=== PATIENT | female | born 1950 | race Caucasian/White ===

== ENCOUNTER → 2017-10-25 | Outpatient (CLI) | payer MEDICARE, OTHER ==
[~2017-10-25] MED LIST: NAPR-243 PO; PROGESTERONE IM; VIVELLE
--- NOTE | 2017-10-25 15:32 | Diagnostic Imaging Report ---
EXAMINATION: Left ribs at 02:01 p.m. INDICATION: Rib pain. FINDINGS: Three views were obtained. There are no prior studies available for comparison. There is a slightly displaced fracture of the anterolateral aspect of the left ninth rib. In addition, there is a displaced fracture of the anterior aspect of the left seventh rib. The fracture fragments are displaced by half the width of the rib shaft. I suspect that there is also a nondisplaced fracture of the left eighth rib in this same area. There is no sign of an injury to the underlying left lung specifically. There is no pneumothorax. IMPRESSION: 1. There is a displaced fracture of the left seventh rib, a nondisplaced fracture of the left eighth rib, and a slightly displaced fracture of the left ninth rib. There is no acute bony abnormality noted otherwise. 2. There is no evidence for an injury to the left lung. Dictated by: Dictated on workstation # [id number]
== END ==
LOC: RAD 13:21
PROVIDERS: ATTEND Nurse Practitioner Family
DX: S22.42XA Multiple fractures of ribs, left side, initial encounter for closed fracture (principal)
CPT/HCPCS: 71100

== ENCOUNTER 2018-11-02 05:41 | Emergency (ER) | payer MEDICARE, OTHER ==
[~2018-11-02] VITALS: Ht 157.5 cm; Wt 57.2 kg
--- OUTSIDE RECORDS SUMMARY | 2018-11-02 05:46 | XMS REPORT | Continuity of Care Document ---
Author Author [facility] Organization [facility] Address Unknown Phone Unavailable Allergies Active Description Code Type Severity Reaction Onset Reported/Identified Relationship to Patient Clinical Status Yes No Known Drug Allergies [id number] Drug Allergy Unknown N/A 09/09/2011 Medications There is no data. Problems Date Dx Coded Attending Type Code Diagnosis Diagnosed By 09/09/2011 Ot 729.5 PAIN IN LIMB 09/09/2011 Ot 729.81 SWELLING OF LIMB 03/31/2016 MARANDA RACHEL MD R Ot S90.31XA CONTUSION OF RIGHT FOOT, INITIAL ENCOUNT 03/31/2016 MARANDA RACHEL MD R Ot X58.XXXA EXPOSURE TO OTHER SPECIFIED FACTORS, INI 03/31/2016 MARANDA RACHEL MD R Ot Y99.8 OTHER EXTERNAL CAUSE STATUS 04/06/2016 MARANDA RACHEL MD R Ot S90.31XA CONTUSION OF RIGHT FOOT, INITIAL ENCOUNT 04/06/2016 MARANDA RACHEL MD R Ot X58.XXXA EXPOSURE TO OTHER SPECIFIED FACTORS, INI 04/06/2016 MARANDA RACHEL MD R Ot Y99.8 OTHER EXTERNAL CAUSE STATUS 04/21/2016 MARANDA RACHEL MD R Ot S90.31XA CONTUSION OF RIGHT FOOT, INITIAL ENCOUNT 04/21/2016 MARANDA RACHEL MD R Ot X58.XXXA EXPOSURE TO OTHER SPECIFIED FACTORS, INI 04/21/2016 MARANDA RACHEL MD R Ot Y99.8 OTHER EXTERNAL CAUSE STATUS 11/10/2017 JUAN LUIS SHELLEY APRN Ot S22.42XA MULTIPLE FRACTURES OF RIBS, LEFT SIDE, I 11/30/2017 JUAN LUIS SHELLEY APRN Ot S22.42XA MULTIPLE FRACTURES OF RIBS, LEFT SIDE, I 10/06/2018 JUAN LUIS SHELLEY APRN Ot S22.42XA MULTIPLE FRACTURES OF RIBS, LEFT SIDE, I 10/06/2018 JUAN LUIS SHELLEY APRN Ot S22.42XA MULTIPLE FRACTURES OF RIBS, LEFT SIDE, I Procedures There is no data. Results There is no data. Encounters ACCT No. Visit Date/Time Discharge Status Pt. 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
[2018-11-02] MEDS ORDERED: THYR32.57 (05:55)
[2018-11-02] MEDS ORDERED: diphenhydrAMINE 50 MG/ML INJ (BENADRYL) IM STA (06:17)
[2018-11-02] MEDS ORDERED: PROMETHAZINE INJ 25 MG/ML (PHENERGAN) AMP IM STA (06:17)
[2018-11-02] MEDS ORDERED: KETOROLAC 60 MG/2 ML VIAL IM STA (06:17)
--- NOTE | 2018-11-02 06:24 | ED Headache ---
General Chief Complaint: Head/Cervical Problems Stated Complaint: MIGRAINE,N,V Nursing Triage Note: HEADACHE SINCE 0200. Nursing Sepsis Screen: No Definite Risk Source: patient Exam Limitations: no limitations History of Present Illness Date Seen by Provider: Nov 02, 2018 Time Seen by Provider: 06:10 Initial Comments Here with report of right-sided headache behind the right eye that started at 2 a.m. and has persisted. It is associated with nausea and vomiting. Patient has history of migraines and she states this is her typical migraine. She usually has to present for the triple cocktail (Toradol, Phenergan and Benadryl) . Usually goes to the clinic for this but the onset of this headache caused her to present here. Denies fever but does report that she feels cold. Denies other problems. Timing/Duration: 4-6 hours Severity/Quality: moderate, pressure Location: frontal (behind the right eye) Prior Headaches/Recent Trauma: occasional headaches Modifying Factors: worse with exposure to light; improves with rest Associated Symptoms: No confusion, No facial pain, No fever/chills, No loss of consciousness; nausea/vomiting; No sinus infection, No stiff neck, No weakness Allergies and Home Medications Allergies Coded Allergies: codeine (Verified Allergy, Unknown, 11/02/18) erythromycin base (Verified Allergy, Unknown, 11/02/18) Patient Home Medication List Home Medication List Reviewed: Yes Review of Systems Review of Systems Constitutional: see HPI; No chills, No fever Eyes: No Symptoms Reported Ears, Nose, Mouth, Throat: no symptoms reported Respiratory: No cough, No short of breath Cardiovascular: no symptoms reported Gastrointestinal: No abdominal pain; nausea, vomiting Genitourinary: no symptoms reported Psychiatric/Neurological: See HPI, Headache; Denies Numbness, Denies Weakness Past Nnydadn-Jslacn-Xmuibx Hx Past Med/Social Hx: Reviewed Nursing Past Med/Soc Hx Patient Social History Alcohol Use: Denies Use Recreational Drug Use: No Smoking Status: Never a Smoker 2nd Hand Smoke Exposure: No Recent Foreign Travel: No Contact w/Someone Who Travel: No Recent Infectious Disease Expo: No Recent Hopitalizations: No Immunizations Up To Date Tetanus Booster (TDap): Unknown Seasonal Allergies Seasonal Allergies: No Past Medical History Surgeries: Yes (LITHOTRIPSY) Respiratory: No Cardiac: No Neurological: Yes Headaches /Migraines : 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 oz. 57.410213fg; BMI Method:Stated General Appearance: WD/WN, moderate distress HEENT: PERRL/EOMI, pharynx normal Neck: full range of motion, supple Cardiovascular: regular rate, rhythm, no murmur Respiratory: lungs clear, normal breath sounds Gastrointestinal: non tender, soft Back: normal inspection, no CVA tenderness, no vertebral tenderness Psychiatric: alert, oriented x 3 Crainal Nerves: normal hearing, normal speech, PERRL Motor/Sensory: no motor deficit Skin: normal color, warm/dry Progress/Results/Core Measures Results/Orders My Orders Orders - KATYA FERNANDEZ MD Promethazine Injection (Phenergan Injec (11/02/18 06:17) Diphenhydramine Injection (Benadryl Inje (11/02/18 06:17) Ketorolac Injection (Toradol Injection) (11/02/18 06:17) Vital Signs/I&O 11/02/18 11/02/18 05:50 06:29 Temp 96.2 Pulse 89 67 Resp 20 18 B/P (MAP) 110/80 (90) 107/51 (69) Pulse Ox 97 97 O2 Delivery Room Air Room Air Blood Pressure Mean: 90 Progress Progress Note : Progress Note Seen and evaluated. Phenergan 25 mg IM, Toradol 60 mg IM and Benadryl 25 mg IM ordered. Monitor patient. 0709: Overall doing much better. Discharged home with return precautions. Patient verbalize understanding instructions and agreement with plan. Departure Impression Primary Impression: Migraine Qualified Codes: G43.909 - Migraine, unspecified, not intractable, without status migrainosus Disposition: 01 HOME, SELF-CARE Condition: Improved Departure-Patient Inst. Decision time for Depature: 07:13 Referrals: MARANDA RACHEL MD (PCP/Family) Primary Care Physician Patient Instructions: Migraine Headache (DC) Add. Discharge Instructions: All discharge instructions reviewed with patient and/or family. Voiced understanding. Continue home medications as previously prescribed. Follow-up with your Dr. in one to 2 days for recheck and further evaluation. Return for worsening, fever, vomiting, weakness, rhythm problems or other concerns as needed. Ensure that you drink plenty of fluids and get some rest. KATYA FERNANDEZ MD Nov 02, 2018 06:24
[2018-11-02 06:29] VITALS: BP 107/51
[2018-11-02 07:30] VITALS: BP 114/83
== END 2018-11-02 07:30 | disposition home or self-care (01) ==
LOC: EDUNIT# 05:41 → ER 05:43
DX: G43.909 Migraine, unspecified, not intractable, without status migrainosus (principal); E03.9 Hypothyroidism, unspecified; Z86.69 Personal history of other diseases of the nervous system and sense organs; Z87.442 Personal history of urinary calculi; Z88.5 Allergy status to narcotic agent; Z88.0 Allergy status to penicillin; Z98.890 Other specified postprocedural states
CPT/HCPCS: 99284

== ENCOUNTER → 2020-08-11 | Outpatient (CLI) | payer MEDICARE, OTHER ==
[~2020-08-11] MED LIST changes: +THYR32.57
--- NOTE | 2020-08-11 10:55 | Diagnostic Imaging Report ---
Exam: MRI left foot without contrast. Date: August 11, 2020. Indication: 69-year-old female, left foot pain and swelling in the region of the base of the third toe. Comparison: None. Technique: Multiple noncontrast MRI sequences of the left foot were obtained. 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 There is edema-like signal in the third metatarsal extending from the level of the proximal diaphysis to the third metatarsal head. There is no identified fracture line. The additional bone marrow signal is unremarkable. The Lisfranc ligament proper does appear to be intact and is best seen on sequential short axis images. The visualized portions of the posterior flexor tendons, peroneal tendons, and anterior extensor tendons are intact. The visualized portions of the plantar fascia are intact. There is dorsal subcutaneous edema at the level of the foot. There is no identified focal fluid collection. Joint spaces appear well preserved. There is no identified joint effusion. Impression: 1. Edema-like signal extending from the level of the proximal diaphysis of the third metatarsal to its metatarsal head without identified fracture line. This may reflect stress reaction or bone contusion. Recommend correlation with history. 2. Intact visualized tendons and ligaments. 3. Unremarkable joint assessment. 4. Nonspecific dorsal subcutaneous edema of the foot. Dictated by: Dictated on workstation # [id number]
== END ==
LOC: RAD 07:51
PROVIDERS: ATTEND Podiatrist Foot & Ankle Surgery
DX: M79.672 Pain in left foot (principal); R60.9 Edema, unspecified

== ENCOUNTER 2021-02-12 22:38 | Inpatient (IN) | payer MEDICARE, OTHER ==
[~2021-02-12] VITALS: Ht 157.5 cm; Wt 65.9 kg
[2021-02-12 23:43] LABS: BASOPHILS # (AUTO) 0.1 10^3/uL (0.0-0.1); BASOPHILS % (AUTO) 0 % (0-10); EOSINOPHILS # (AUTO) 0.1 10^3/uL (0.0-0.3); EOSINOPHILS % (AUTO) 1 % (0-10); HEMATOCRIT 41 % (35-52); HEMOGLOBIN 12.8 g/dL (11.5-16.0); LYMPHOCYTES # (AUTO) 1.1 10^3/uL (1.0-4.0); LYMPHOCYTES % (AUTO) 7 % (12-44); MEAN CORPUSCULAR HEMOGLOBIN 29 pg (25-34); MEAN CORPUSCULAR HGB CONC 31 g/dL (32-36); MEAN CORPUSCULAR VOLUME 93 fL (80-99); MEAN PLATELET VOLUME 9.2 fL (9.0-12.2); MONOCYTES # (AUTO) 0.7 10^3/uL (0.0-1.0); MONOCYTES % (AUTO) 5 % (0-12); NEUTROPHILS # (AUTO) 12.7 10^3/uL (1.8-7.8); NEUTROPHILS % (AUTO) 87 % (42-75); PLATELET COUNT 480 10^3/uL (130-400); WHITE BLOOD COUNT 14.7 10^3/uL (4.3-11.0)
[2021-02-12] MEDS ORDERED: LACTATED RINGERS 1,000 ML IV ONE (23:45)
[2021-02-12] MEDS ORDERED: ONDANSETRON 4 MG/2 ML (SDV) Z0FRAN IVP ONE (23:45)
[2021-02-13 00:02] LABS: ALANINE AMINOTRANSFERASE 12 U/L (0-55); ALBUMIN 4.5 GM/DL (3.2-4.5); ALKALINE PHOSPHATASE 90 U/L (40-136); AMYLASE 68 U/L (25-125); BAND NEUTROPHILS 6 %; BILIRUBIN,TOTAL 0.5 MG/DL (0.1-1.0); BUN/CREATININE RATIO 11; CALCIUM 10.3 MG/DL (8.5-10.1); CARBON DIOXIDE 31 MMOL/L (21-32); CHLORIDE 99 MMOL/L (98-107); CREATININE SERUM 0.83 MG/DL (0.60-1.30); EOSINOPHILS % (MANUAL) 1 %; GFR ESTIMATED > 60; GLUCOSE 127 MG/DL (70-105); LIPASE 17 U/L (8-78); LYMPHOCYTES % (MANUAL) 7 %; MAGNESIUM 2.5 MG/DL (1.6-2.4); MONOCYTES % (MANUAL) 3 %; NEUTROPHILS % (MANUAL) 83 %; POTASSIUM 3.7 MMOL/L (3.6-5.0); RBC MORPH NORMAL; SODIUM 143 MMOL/L (135-145)
[2021-02-13] MEDS ORDERED: HYOSCYAMINE 0.125 MG (LEVSIN) TAB PO ONE (00:15)
[2021-02-13 00:17] LABS: BILIRUBIN,URINE NEGATIVE (NEGATIVE); CLARITY,URINE SL CLOUDY; COLOR,URINE YELLOW; GLUCOSE, URINE (UA) NEGATIVE (NEGATIVE); KETONES,URINE 1+ (NEGATIVE); LEUKOCYTE ESTERASE ,URINE 1+ (NEGATIVE); NITRITE,URINE NEGATIVE (NEGATIVE); PH,URINE 8.5 (5-9); PROTEIN,URINE TRACE (NEGATIVE)
[2021-02-13] MEDS ORDERED: NS 100 ML (IVPB) BAG IV ONE (00:30)
[2021-02-13] MEDS ORDERED: IOHEXOL 350 MG/ML 100 ML (OMNIPAQUE 350) VIAL IV ONE (00:30)
[2021-02-13] MEDS ORDERED: HOLD METFORMIN - RECEIVED CONTRAST 20 ML VIAL IV SCH (00:30)
[2021-02-13 00:53] LABS: AMORPHOUS SEDIMENT,UR LARGE AMOR PHOSPHATE /LPF; BACTERIA,URINE TRACE /HPF; RBC,URINE RARE /HPF; WBC,URINE 0-2 /HPF
[2021-02-13] MEDS ORDERED: HURRICAINE EXT TUBE (BENZOCAINE) ONE ×2 (01:04→01:21)
[2021-02-13] MEDS ORDERED: fentaNYL INJ 100 MCG/2 ML AMP IVP ONE ×2 (01:15→02:00)
[2021-02-13] MEDS ORDERED: PANTOPRAZOLE 40 MG (PROTONIX) VIAL IV ONE (01:15)
--- NOTE | 2021-02-13 01:43 | ED Abdominal Pain ---
General Chief Complaint: Abdominal/GI Problems Stated Complaint: ABD PAIN/VOMITING Nursing Triage Note: PRESENTS TO ROOM #6 VIA POV ACCOMPANIED BY WITH C/O EPIGASTRIC DISCOMFORT, NAUSEA, ET VOMITING. STATES DISCOMFORT TO MEDIAL UPPER ABD BEGAN AT 0900 ET HAS INCREASED IN SEVERITY. STATES AT 2200 SHE EXPERIENCED X1 EPISODE OF EMESIS. STATES SHE TOOK ROLAIDS, TUMS, ET MYLANTA WITH NO RELIEF IN SX. Sepsis Screen: No Definite Risk Source of Information: Patient History of Present Illness Date Seen by Provider: Feb 12, 2021 Time Seen by Provider: 23:35 Initial Comments PT ARRIVES VIA POV FROM HOME C/O ABDOMINAL PAIN SINCE 09 THIS AM PAIN BEGAN IN EPIGASTRIC AREA, AND NOW IS ALL OVER ABDOMEN PAIN FEELS LIKE SEVERE GAS PAINS HAS HAD ABDOMINAL BLOATING SINCE THIS AFTERNOON HAS HAD SOME NAUSEA ALL DAY, BUT AROUND 2200 TONIGHT, SHE BEGAN VOMITING--VOMITED X1 NOW FEELS LIKE ALOT OF ACID/ BURNING SENSATION IN THROAT. HAD NORMAL BM THIS AM, BUT HAS NOT BEEN PASSING GAS SINCE THIS EVENING NO FEVER NO URINARY SYMPTOMS WAS ABLE TO EAT AND DRINK EARLIER TODAY, BUT NOT THIS EVENING NO RELIEF FROM ROLAIDS, TUMS AND MYLANTA NO HISTORY OF SIMILAR NO PRIOR GI PROBLEMS OR ABDOMINAL SURGERIES HAS NEVER HAD A COLONOSCOPY OR EGD DENIES ANY COVID-19 SYMPTOMS OR EXPOSURES OR SICK CONTACTS PT HAD BOTH MODERNA COVID-19 VACCINATIONS, LAST ONE WAS THE END OF DECEMBER PCP: DR. Lindsay HAMMONDS Allergies and Home Medications Allergies Coded Allergies: codeine (Verified Allergy, Unknown, 11/02/18) erythromycin base (Verified Allergy, Unknown, 11/02/18) Patient Home Medication List Home Medication List Reviewed: Yes Review of Systems Review of Systems Constitutional: no symptoms reported; No chills, No diaphoresis, No fever Respiratory: No Symptoms Reported; Denies Cough, Denies Shortness of Air Cardiovascular: No Symptoms Reported; Denies Chest Pain Gastrointestinal: See HPI, Abdomen Distended, Abdominal Pain, Nausea, Vomiting Genitourinary: No Symptoms Reported Musculoskeletal: no symptoms reported; No back pain Skin: no symptoms reported Psychiatric/Neurological: No Symptoms Reported Endocrine: No Symptoms Reported Hematologic/Lymphatic: No Symptoms Reported Past Jbjydvq-Mvjqmr-Wjjdhp Hx Past Med/Social Hx: Reviewed and Corrections made Patient Social History Alcohol Use: Denies Use Smoking Status: Never a Smoker 2nd Hand Smoke Exposure: No Recent Infectious Disease Expo: No Recent Hopitalizations: No Immunizations Up To Date Tetanus Booster (TDap): Unknown Seasonal Allergies Seasonal Allergies: No Past Medical History Surgeries: Yes (LITHOTRIPSY) Renal Respiratory: No Cardiac: No Neurological: Yes Headaches /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 oz. 57.431298rx; 24.00 BMI Method:Stated General Appearance: WD/WN, no apparent distress HEENT: PERRL/EOMI, other (ORAL MUCOSA MOIST) Neck: normal inspection Respiratory: normal breath sounds, no respiratory distress, no accessory muscle use Cardiovascular: regular rate, rhythm, no murmur Gastrointestinal: soft, no organomegaly, no pulsatile mass, abnormal bowel sounds (HYPERACTIVE), distended (MILDLY DISTENDED BUT IS STILL RELATIVELY SOFT); No guarding, No rebound, No tenderness (PT DENIES TENDERNESS TO PALPATION, BUT S TATES HER WHOLE ABDOMEN HURTS), No hernia, No mass Extremities: normal inspection Back: normal inspection, no CVA tenderness Neurologic/Psychiatric: 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0-12.2 fL Immature Granulocyte % (Auto) 1 % Neutrophils (%) (Auto) 87 H 42-75 % Lymphocytes (%) (Auto) 7 L 12-44 % Monocytes (%) (Auto) 5 0-12 % Eosinophils (%) (Auto) 1 0-10 % Basophils (%) (Auto) 0 0-10 % Neutrophils # (Auto) 12.7 H 1.8-7.8 10^3/uL Lymphocytes # (Auto) 1.1 1.0-4.0 10^3/uL Monocytes # (Auto) 0.7 0.0-1.0 10^3/uL Eosinophils # (Auto) 0.1 0.0-0.3 10^3/uL Basophils # (Auto) 0.1 0.0-0.1 10^3/uL Immature Granulocyte # (Auto) 0.1 0.0-0.1 10^3/uL Neutrophils % (Manual) 83 % Lymphocytes % (Manual) 7 % Monocytes % (Manual) 3 % Eosinophils % (Manual) 1 % Band Neutrophils 6 % Blood Morphology Comment NORMAL Sodium Level 143 135-145 MMOL/L Potassium Level 3.7 3.6-5.0 MMOL/L Chloride Level 99 98-107 MMOL/L Carbon Dioxide Level 31 21-32 MMOL/L Anion Gap 13 5-14 MMOL/L Blood Urea Nitrogen 9 7-18 MG/DL Creatinine 0.83 0.60-1.30 MG/DL Estimat Glomerular Filtration Rate > 60 BUN/Creatinine Ratio 11 Glucose Level 127 H 70-105 MG/DL Calcium Level 10.3 H 8.5-10.1 MG/DL Corrected Calcium 9.9 8.5-10.1 MG/DL Magnesium Level 2.5 H 1.6-2.4 MG/DL Total Bilirubin 0.5 0.1-1.0 MG/DL Aspartate Amino Transf (AST/SGOT) 17 5-34 U/L Alanine Aminotransferase (ALT/SGPT) 12 0-55 U/L Alkaline Phosphatase 90 40-136 U/L Total Protein 8.0 6.4-8.2 GM/DL Albumin 4.5 3.2-4.5 GM/DL Amylase Level 68 25-125 U/L Lipase 17 8-78 U/L Urine Color YELLOW Urine Clarity SL CLOUDY Urine pH 8.5 5-9 Urine Specific [place] 1.025 H 1.016-1.022 Urine Protein TRACE H NEGATIVE Urine Glucose (UA) NEGATIVE NEGATIVE Urine Ketones 1+ H NEGATIVE Urine Nitrite NEGATIVE NEGATIVE Urine Bilirubin NEGATIVE NEGATIVE Urine Urobilinogen 0.2 < = 1.0 MG/DL Urine Leukocyte Esterase 1+ H NEGATIVE Urine RBC (Auto) TRACE-I NEGATIVE Urine RBC RARE /HPF Urine WBC 0-2 /HPF Urine Squamous Epithelial Cells 5-10 /HPF Urine Crystals PRESENT H /LPF Urine Amorphous Sediment LARGE WALKER PHOSPHATE H /LPF Urine Bacteria TRACE /HPF Urine Casts NONE /LPF Urine Mucus NEGATIVE /LPF Urine Culture Indicated NO My Orders Orders - JOSE ALFREDO OCONNELL DO Ed Iv/Invasive Line Start (02/12/21 23:37) Monitor-Rhythm Ecg Trace Only (02/12/21 23:37) Amylase (02/12/21 23:37) Cbc With Automated Diff (02/12/21 23:37) Comprehensive Metabolic Panel (02/12/21 23:37) Lipase (02/12/21 23:37) Magnesium (02/12/21 23:37) Ua Culture If Indicated (02/12/21 23:37) Ondansetron Injection (Zofran Injectio (02/12/21 23:45) Ed Iv/Invasive Line Start (02/12/21 23:37) Lactated Ringers (Lr 1000 Ml Iv Solution (02/12/21 23:45) Manual Differential (02/12/21 23:11) Ct Abd/Pelv W (Appendicitis) (02/13/21 00:09) Acute Abd Series (02/13/21 00:09) Hyoscyamine Sl Tablet (Levsin Sl Tablet) (02/13/21 00:15) Iohexol Injection (Omnipaque 350 Mg/Ml 1 (02/13/21 00:30) Received Contrast (Hold Metformin- Contr (02/13/21 00:30) Ns (Ivpb) (Sodium Chloride 0.9% Ivpb Bag (02/13/21 00:30) Medications Given in ED Current Medications Medications Dose Ordered Sig/Luke Route Start Time Stop Time Status Last Admin Dose Admin Hyoscyamine Sulfate 0.25 mg ONCE ONCE PO 02/13/21 00:15 02/13/21 00:16 DC 02/13/21 00:21 0.25 MG Iohexol 100 ml ONCE ONCE IV 02/13/21 00:30 02/13/21 00:31 DC 02/13/21 00:39 80 ML Lactated Ringer's 1,000 ml @ 0 mls/hr Q0M ONCE IV 02/12/21 23:45 02/12/21 23:46 DC 02/12/21 23:44 0 MLS/HR Ondansetron HCl 4 mg ONCE ONCE IVP 02/12/21 23:45 02/12/21 23:46 DC 02/12/21 23:44 4 MG Sodium Chloride 100 ml ONCE ONCE IV 02/13/21 00:30 02/13/21 00:31 DC 02/13/21 00:39 80 ML Vital Signs/I&O 02/12/21 23:00 Temp 36.3 Pulse 71 Resp 18 B/P (MAP) 140/74 (96) Pulse Ox 97 O2 Delivery Room Air Blood Pressure Mean: 96 Progress Progress Note : Progress Note GIVEN IV FLUIDS AND ZOFRAN WITH MUCH IMPROVEMENT IN NAUSEA. GIVEN LEVSIN, PROTONIX AND FENTANYL FOR PAIN NG TUBE PLACED, WITH IMMEDIATE RETURN OF > 600 ML GASTRIC CONTENTS, PLUS LARGE EMESIS DURING PLACEMENT. NO DETERIORATION IN PT;S CONDITION DURING ER STAY Diagnostic Imaging Comments ABDOMEN XRAYS--SMALL BOWEL OBSTRUCTION, PENDING RADIOLOGIST REVIEW CT ABDOMEN / PELVIS--SMALL BOWEL OBSTRUCTION WITH TRANSITION POINT IN DEEP PELVIS. DIVERTICULOSIS--PER [facility] VIA FAX AT 4200 Reviewed: Reviewed by Fl Departure Communication (Admissions) 010--SPOKE WITH DR. HOWARD, SURGEON [employer] CONSULTANT. ACCEPTS PT FOR ADMIT Impression Primary Impression: Small bowel obstruction Disposition: ADMITTED INPATIENT Condition: Stable Admissions Decision to Admit Reason: Admit from ER (General) Decision to Admit/Date: Feb 13, 2021 Time/Decision to Admit Time: 01:00 Departure-Patient Inst. Referrals: KEAGAN HAMMONDS MD (PCP/Family) Primary Care Physician JOSE ALFREDO OCONNELL DO Feb 13, 2021 01:43
[2021-02-13] MEDS ORDERED: LACTATED RINGERS 1,000 ML IV ONE (01:45)
[2021-02-13] MEDS ORDERED: PROMETHAZINE INJ 25 MG/ML (PHENERGAN) AMP ONE (01:51)
[2021-02-13] MEDS ORDERED: PROMETHAZINE INJ 25 MG/ML (PHENERGAN) AMP IVP ONE (02:00)
[2021-02-13] MEDS ORDERED: fentaNYL INJ 100 MCG/2 ML AMP IVP STA (02:49)
[2021-02-13 03:11] VITALS: BP 136/61
[2021-02-13] MEDS: D5 1/2 NS W/KCL 20 MEQ/L 1,000 ML IV SCH ×3 (03:29→17:28)
--- NOTE | 2021-02-13 05:29 | Diagnostic Imaging Report ---
INDICATION: post ng tube placement COMPARISON: Earlier same day FINDINGS: Single frontal view of the chest demonstrates normal heart size and pulmonary vascularity. The lungs are well aerated and clear. No large pleural effusion or pneumothorax is seen. The visualized osseous structures show no acute abnormalities. Indwelling gastric tube is seen with tip in the lower esophagus IMPRESSION: 1. No acute cardiopulmonary process. 2. Gastric tube with tip in lower esophagus. Dictated by: Dictated on workstation # [id number]
--- NOTE | 2021-02-13 05:30 | Diagnostic Imaging Report ---
INDICATION: POST NG TUBE PLACEMENT COMPARISON: Earlier same day FINDINGS: Single frontal view of the chest demonstrates normal heart size and pulmonary vascularity. The lungs are well aerated and clear. No large pleural effusion or pneumothorax is seen. The visualized osseous structures show no acute abnormalities. Gastric tube has since been advanced. Side port now appears to terminate just below the hiatus with tip in this lumen of the stomach. IMPRESSION: 1. No acute cardiopulmonary process. 2. Interval advancement of gastric tube as above. Dictated by: Dictated on workstation # [id number]
--- NOTE | 2021-02-13 05:31 | Diagnostic Imaging Report ---
INDICATION: abd pain COMPARISON: CT from earlier same day FINDINGS: Supine and upright views of the abdomen show multiple mildly air distended loops of small bowel within the central abdomen. Multiple air-fluid levels are identified on the upright view. There is no large collection of free intraperitoneal air. No abnormal extraosseous calcifications are seen. Bony and soft tissue structures are within normal limits. No organomegaly is identified. Accompanying upright chest shows normal heart size and pulmonary vascularity. The lungs are well aerated and clear. The mediastinum is normal in appearance. IMPRESSION: 1. Findings concerning for small bowel obstruction. Correlation with CT of the abdomen from earlier same day is recommended. 2. Normal chest. No pneumonia or pulmonary edema. Dictated by: Dictated on workstation # [id number]
[2021-02-13] MEDS: fentaNYL INJ 100 MCG/2 ML AMP IV PRN ×7 (06:14→22:08)
[2021-02-13] MEDS ORDERED: CATHETER FLUSH 10 ML SYR IV PRN (07:00)
--- NOTE | 2021-02-13 07:30 | Diagnostic Imaging Report ---
PROCEDURE: CT abdomen and pelvis with contrast, rule out appendicitis. TECHNIQUE: Multiple contiguous axial images were obtained through the abdomen and pelvis after the administration of intravenous contrast. All CT scans use one or more of the following dose optimizing techniques: automated exposure control, MA and/or KvP adjustment based on patient size and exam type or iterative reconstruction. INDICATION: Epigastric discomfort, nausea and vomiting. No prior studies. FINDINGS: There is a large fluid-filled paraesophageal hernia with fluid-filled stomach. No mass in the liver, spleen, adrenals, kidneys or pancreas. No biliary dilatation. No calcified gallstones. Distended small bowel loops consistent with small bowel obstruction. Transition zone is in the pelvis. No evidence for appendicitis. Terminal ileum and cecum are decompressed. Diverticulosis without evidence for diverticulitis. There is a small amount of free fluid. No free air or abscess. No retroperitoneal mass or adenopathy. No kidney mass, stone or hydronephrosis. IMPRESSION: 1. Findings consistent with small bowel obstruction with a small amount of free fluid. Transition zone is in the pelvis. 2. No evidence for appendicitis. Diverticulosis without evidence for diverticulitis. No free air. 3. Paraesophageal hernia filled with fluid. I agree with the preliminary teleradiology report. Dictated by: Dictated on workstation # [id number]
[2021-02-13 08:00] VITALS: BP 119/69
[2021-02-13] MEDS: PANTOPRAZOLE 40 MG (PROTONIX) VIAL IV SCH (08:00)
[2021-02-13] MEDS ORDERED: CALC-921 PO (10:51)
[2021-02-13] MEDS ORDERED: ACET-2267 PO (10:51)
[2021-02-13] MEDS ORDERED: THYR15TA PO (10:51)
[2021-02-13] MEDS ORDERED: POTA99TA17 PO (10:51)
[2021-02-13] MEDS ORDERED: PROG50VI5 IM (10:51)
[2021-02-13] MEDS ORDERED: FISH1CAP15 PO (10:51)
[2021-02-13] MEDS ORDERED: MAG355OR17 PO (10:51)
[2021-02-13] MEDS ORDERED: ESTR1PAT TD (10:51)
[2021-02-13 12:00] VITALS: BP 121/72
--- NOTE | 2021-02-13 14:50 | History & Physical-Surgical ---
History of Present Illness History of Present Illness Reason for visit/HPI Surgery asked to admit regarding PSBO. HPI per ED: PT ARRIVES VIA POV FROM HOME C/O ABDOMINAL PAIN SINCE 0930 THIS AM, PAIN BEGAN IN EPIGASTRIC AREA, AND NOW IS ALL OVER ABDOMEN, PAIN FEELS LIKE SEVERE GAS PAINS HAS HAD ABDOMINAL BLOATING SINCE THIS AFTERNOON, HAS HAD SOME NAUSEA ALL DAY, BUT AROUND 2200 TONIGHT, SHE BEGAN VOMITING--VOMITED X1, NOW FEELS LIKE ALOT OF ACID/ BURNING SENSATION IN THROAT. HAD NORMAL BM THIS AM, BUT HAS NOT BEEN PASSING GAS SINCE THIS EVENING, NO FEVER, NO URINARY SYMPTOMS, WAS ABLE TO EAT AND DRINK EARLIER TODAY, BUT NOT THIS EVENING, NO RELIEF FROM ROLAIDS, TUMS AND MYLANTA NO HISTORY OF SIMILAR, NO PRIOR GI PROBLEMS OR ABDOMINAL SURGERIES, HAS NEVER HAD A COLONOSCOPY OR EGD, DENIES ANY COVID-19 SYMPTOMS OR EXPOSURES OR SICK CONTACTS, PT HAD BOTH MODERNA COVID-19 VACCINATIONS, LAST ONE WAS THE END OF DECEMBER When I saw pt this afternoon her main complaint was the pain from NGT. States her abdomen is not as distended and her abdominal pain is minimal. She thinks she did pass some gas earlier, but no BM. Date of Admission Feb 13, 2021 at 01:00 Time Seen by a Provider: 13:59 I consulted on this patient on 02/13/21 14:44 Attending Physician Sarah Rutherford DO Admitting Physician Mirza Madison MD Consult Allergies and Home Medications Allergies Coded Allergies: codeine (Verified Allergy, Unknown, 11/02/18) erythromycin base (Verified Allergy, Unknown, 11/02/18) Home Medications Acetaminophen 500 Mg Tablet, 500-1,000 MG PO Q8H PRN for PAIN-MILD (1-4), (Reported) Last Action: Reviewed Calcium Carb/Magnesium Hydrox 1 Each Tab.chew, 1-2 EACH PO UD PRN for HEARTBURN, (Reported) Last Action: Reviewed Estradiol 1 Each Patch.tdsw, 1 PATCH TD TWICE WEEKLY, (Reported) LAST FILLED 11-24-2020 #06/13 DAY SUPPLY Last Action: Reviewed Fish Oil/Dha/Epa 1 Each Capsule, 1 EACH PO DAILY, (Reported) Last Action: Reviewed Mag Hydrox/Al Hydrox/Simeth 355 Ml Oral.susp, 10-20 ML PO QID PRN for INDIGEST ION, (Reported) Last Action: Reviewed Potassium Gluconate 99 Mg Tablet, 99 MG PO DAILY, (Reported) Last Action: Reviewed Progesterone 50 Mg/1 Ml Vial, 3 ML IM MONTHLY, (Reported) Last Action: Reviewed Thyroid,Pork 15 Mg Tablet, 15 MG PO DAILY, (Reported) Last Action: Reviewed Patient Home Medication List Home Medication List Reviewed: Yes Past Rozkfvg-Yjauzv-Niavom Hx Patient Social History Smoking Status: Never a Smoker 2nd Hand Smoke Exposure: No Recent Hopitalizations: No Alcohol Use?: Yes Have you traveled recently?: No Immunizations Up To Date Tetanus Booster (TDap): Unknown Date of Influenza Vaccine: Aug 17, 2020 Seasonal Allergies Seasonal Allergies: No Surgeries History of Surgeries: Yes (LITHOTRIPSY) Surgeries: Renal Respiratory History of Respiratory Disorde: No Cardiovascular History of Cardiac Disorders: No Neurological History of Neurological Disord: Yes Neurological Disorders: Headaches /Migraines 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 Genitourinary History of Genitourinary Disor: Yes Genitourinary Disorders: Kidney Stones Gastrointestinal History of Gastrointestinal Di: No Musculoskeletal History of Musculoskeletal Dis: No Endocrine History of Endocrine Disorders: Yes Endocrine Disorders: Hypothyroidsim HEENT History of HEENT Disorders: No Cancer History of Cancer: No Psychosocial History of Psychiatric Problem: No Integumentary History of Skin or Integumenta: No Blood Transfusions History of Blood Disorders: No Adverse Reaction to a Blood Tr: No Family Medical History Significant Family History: Hypertension (Mother), Vascular Disease (Father of ruptured AAA), Other Conditions/Hx (Brother had "part of intestine removed") Review of Systems Constitutional: No chills, No diaphoresis EENTM: No blurred vision, No double vision, No mouth pain, No mouth swelling, No epistaxis Respiratory: No cough, No dyspnea on exertion, No phlegm, No short of breath Cardiovascular: No chest pain, No edema, No palpitations Gastrointestinal: abdominal pain, loss of appetite, nausea, vomiting Genitourinary: No dysuria, No frequency, No hematuria Musculoskeletal: No joint pain, No muscle pain, No muscle stiffness Skin: No change in color, No change in hair/nails Psychiatric/Neurological: Denies Anxiety, Denies Depressed, Denies Seizure, Denies Tremors Pt denies any hx of abnormal bleeding or bruising. Physical Exam Vital Signs Vital Signs - First Documented 02/12/21 23:00 Temp 36.3 Pulse 71 Resp 18 B/P (MAP) 140/74 (96) Pulse Ox 97 O2 Delivery Room Air Capillary Refill : Less Than 3 Seconds Height, Weight, BMI Height: 5'2.00" Weight: 126lbs. oz. [id number]; 26.56 BMI Method:Stated General Appearance: WD/WN, Anxious, Mild Distress Eyes: Bilateral Eye PERRL, Bilateral Eye EOMI HEENT: Pharynx Normal, Moist Mucous Membranes; No Scleral Icterus (L), No Scleral Icterus (R); Other (NGT in place) Neck: Full Range of Motion, Non Tender, Supple Respiratory: Chest Non Tender, Lungs Clear, Normal Breath Sounds, No Accessory Muscle Use, No Respiratory Distress Cardiovascular: Regular Rate, Rhythm, No Murmur Gastrointestinal: No Organomegaly, No Pulsatile Mass, Soft; No Distended; Tenderness (mild, mostly lower quadrants) Rectal: Deferred Back: No CVA Tenderness, No Vertebral Tenderness Extremity: No Calf Tenderness, No Pedal Edema Neurologic/Psychiatric: Alert, Oriented x3, No Motor/Sensory Deficits, Normal Mood/Affect, managing consultant II-XII Norm as Tested Skin: Normal Color, Warm/Dry Lymphatic: No Adenopathy (neck, axilla or groin) Data Review Labs Laboratory Tests 02/12/21 23:11: White Blood Count 14.7H, Red Blood Count 4.44, Hemoglobin 12.8, Hematocrit 41, M kylie Corpuscular Volume 93, Mean Corpuscular Hemoglobin 29, Mean Corpuscular Hemoglobin Concent 31L, Red Cell Distribution Width 13.7, Platelet Count 480H, Mean Platelet Volume 9.2, Immature Granulocyte % (Auto) 1, Neutrophils (%) (Auto) 87H, Lymphocytes (%) (Auto) 7L, Monocytes (%) (Auto) 5, Eosinophils (%) (Auto) 1, Basophils (%) (Auto) 0, Neutrophils # (Auto) 12.7H, Lymphocytes # (Auto) 1.1, Monocytes # (Auto) 0.7, Eosinophils # (Auto) 0.1, Basophils # (Auto) 0.1, Immature Granulocyte # (Auto) 0.1, Neutrophils % (Manual) 83, Lymphocytes % (Manual) 7, Monocytes % (Manual) 3, Eosinophils % (Manual) 1, Band Neutrophils 6, Blood Morphology Comment NORMAL, Sodium Level 143, Potassium Level 3.7, Chloride Level 99, Carbon Dioxide Level 31, Anion Gap 13, Blood Urea Nitrogen 9, Creatinine 0.83, Estimat Glomerular Filtration Rate > 60, BUN/Creatinine Ratio 11, Glucose Level 127H, Calcium Level 10.3H, Corrected Calcium 9.9, Magnesium Level 2.5H, Total Bilirubin 0.5, Aspartate Amino Transf (AST/SGOT) 17, Alanine Aminotransferase (ALT/SGPT) 12, Alkaline Phosphatase 90, Total Protein 8.0, Albumin 4.5, Amylase Level 68, Lipase 17 02/13/21 00:06: Urine Color YELLOW, Urine Clarity SL CLOUDY, Urine pH 8.5, Urine Specific [place] 1.025H, Urine Protein TRACEH, Urine Glucose (UA) NEGATIVE, Urine Ketones 1+H, Urine Nitrite NEGATIVE, Urine Bilirubin NEGATIVE, Urine Urobilinogen 0.2, Urine Leukocyte Esterase 1+H, Urine RBC (Auto) TRACE-I, Urine RBC RARE, Urine WBC 0-2, Urine Squamous Epithelial Cells 5-10, Urine Crystals PRESENTH, Urine Amorphous Sediment LARGE WALKER PHOSPHATEH, Urine Bacteria TRACE, Urine Casts NONE, Urine Mucus NEGATIVE, Urine Culture Indicated NO Radiology Date of Exam:02/13/21 CT ABD/PELV W (APPENDICITIS) PROCEDURE: CT abdomen and pelvis with contrast, rule out appendicitis. TECHNIQUE: Multiple contiguous axial images were obtained through the abdomen and pelvis after the administration of intravenous contrast. All CT scans use one or more of the following dose optimizing techniques: automated exposure control, MA and/or KvP adjustment based on patient size and exam type or iterative reconstruction. INDICATION: Epigastric discomfort, nausea and vomiting. No prior studies. FINDINGS: There is a large fluid-filled paraesophageal hernia with fluid-filled stomach. No mass in the liver, spleen, adrenals, kidneys or pancreas. No biliary dilatation. No calcified gallstones. Distended small bowel loops consistent with small bowel obstruction. Transition zone is in the pelvis. No evidence for appendicitis. Terminal ileum and cecum are decompressed. Diverticulosis without evidence for diverticulitis. There is a small amount of free fluid. No free air or abscess. No retroperitoneal mass or adenopathy. No kidney mass, stone or hydronephrosis. IMPRESSION: 1. Findings consistent with small bowel obstruction with a small amount of free fluid. Transition zone is in the pelvis. 2. No evidence for appendicitis. Diverticulosis without evidence for diverticulitis. No free air. 3. Paraesophageal hernia filled with fluid. I agree with the preliminary teleradiology report. Dictated by: Dictated on workstation # [id number] Dict: 02/13/21 0722 Trans: 02/13/21 0753 [id number] Interpreted by: ROSSY ALCANTARA MD Electronically signed by: ROSSY ALCANTARA MD 02/13/21 0753 Assessment/Plan Assessment/Plan Admission Diagonsis Partial Small Bowel Obstruction Nausea and Vomiting Abd pain Hypothryoid Admission Status: Inpatient Order (span 2 midnights) Reason for Inpatient Admission: Pt is getting a SBFT and then will need to be slowly started on a diet - all of which will take at least 2 midnights; if she has surgery it will be much longer. Assessment/Plan Partial Small Bowel Obstruction Nausea and Vomiting Abd pain Hypothryoid Hiatal Hernia Pt has PSBO on CT of abd/pelvis; small bowel stuck down in the pelvis with transition point, which is causing her N/V and abd pain. She also had a hiatal hernia seen on CT. I am unsure why she has a partial obstruction; most common c ause is adhesions from previous surgery. It could be a tumor or just an ileus; she has had some improvement with the NGT and thinks her abdomen is not as distended. I will order a SBFT to see if this is a complete obstruction; we did talk about the possibility of surgery if she has a complete obstruction. Will keep her NPO, NGT to LIWS, give her IV fluids, pain meds and anti-emetics as needed. SARAH RUTHERFORD DO Feb 13, 2021 14:50
[2021-02-13 16:00] VITALS: BP 124/72
--- NOTE | 2021-02-13 18:04 | Consultation ---
History of Present Illness History of Present Illness Patient Consulted On(dano/time) 02/13/21 17:59 Date Seen by Provider: Feb 13, 2021 Time Seen by Provider: 17:59 Reason for Visit: small bowel obstruction History of Present Illness 70 yo F admitted for small bowel obstruction. Onset yesterday. But since she has had all day to think about it- she has been belching more for over a week. Abdominal pain flared up yesterday- upper abdomen. Denies fevers, chills. She also has history of migraines and hypothyroidism. I am patient's pcp and contacted to follow along with her case. Patient this evening reports that her distended abdomen has improved with the NG tube, she does not feel bloated. Pain is better as well. The left side of her neck hurts where she thinks the NG tube is passing through. Right now her biggest complaint is the NG tube. Allergies and Home Medications Allergies Coded Allergies: codeine (Verified Allergy, Unknown, 11/02/18) erythromycin base (Verified Allergy, Unknown, 11/02/18) Home Medications Acetaminophen 500 Mg Tablet, 500-1,000 MG PO Q8H PRN for PAIN-MILD (1-4), (Reported) Last Action: Reviewed Calcium Carb/Magnesium Hydrox 1 Each Tab.chew, 1-2 EACH PO UD PRN for HEARTBURN, (Reported) Last Action: Reviewed Estradiol 1 Each Patch.tdsw, 1 PATCH TD TWICE WEEKLY, (Reported) LAST FILLED 11-24-2020 #8 DAY SUPPLY Last Action: Reviewed Fish Oil/Dha/Epa 1 Each Capsule, 1 EACH PO DAILY, (Reported) Last Action: Reviewed Mag Hydrox/Al Hydrox/Simeth 355 Ml Oral.susp, 10-20 ML PO QID PRN for INDIGES TION, (Reported) Last Action: Reviewed Potassium Gluconate 99 Mg Tablet, 99 MG PO DAILY, (Reported) Last Action: Reviewed Progesterone 50 Mg/1 Ml Vial, 3 ML IM MONTHLY, (Reported) Last Action: Reviewed Thyroid,Pork 15 Mg Tablet, 15 MG PO DAILY, (Reported) Last Action: Reviewed Patient Home Medication List Home Medication List Reviewed: Yes Past Fvoirhs-Qqdyjs-Uylbfe Hx Past Med/Social Hx: Reviewed and Corrections made Patient Social History Alcohol Use: Denies Use Smoking Status: Never a Smoker 2nd Hand Smoke Exposure: No Recent Infectious Disease Expo: No Recent Hopitalizations: No Have you traveled recently?: No Alcohol Use?: Yes Immunizations Up To Date Tetanus Booster (TDap): Unknown Date of Influenza Vaccine: Aug 17, 2020 Seasonal Allergies Seasonal Allergies: No Past Medical History Surgeries: Yes (LITHOTRIPSY) Renal Respiratory: No Cardiac: No Neurological: Yes Headaches /Migraines 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 Genitourinary: Yes Kidney Stones Gastrointestinal: No Musculoskeletal: No Endocrine: Yes Hypothyroidsim HEENT: No Cancer: No Psychosocial: No Integumentary: No Blood Disorders: No Adverse Reaction/Blood Tranf: No Family Medical History Hypertension (Mother), Vascular Disease (Father of ruptured AAA), Other Con ditions/Hx (Brother had "part of intestine removed") Review of Systems Review of Systems General: No Chills, No Night Sweats HEENT: No Head Aches Pulmonary: No Dyspnea, No Cough Cardiovascular: No: Chest Pain, Palpitations Gastrointestinal: Nausea, Abdominal Pain; No: Vomiting Genitourinary: No Dysuria Neurological: Weakness Physical Exam Vital Signs Vital Signs Date Time Temp Pulse Resp B/P (MAP) Pulse Ox O2 Delivery O2 Flow Rate FiO2 02/13/21 20:00 Room Air 02/13/21 19:00 67 02/13/21 16:00 37.3 88 18 124/72 (89) 97 Room Air 02/13/21 13:00 78 02/13/21 12:00 36.9 81 20 121/72 (88) 98 Room Air I & O 02/14/21 07:00 Intake Total 1000 ml Output Total 2900 ml Balance -1900 ml Height, Weight, BMI Height: 5'2.00" Weight: 126lbs. oz. 57.262532cv; 26.56 BMI Method:Stated General Appearance: Mild Distress Neck: Normal Inspection, Non Tender, Supple Respiratory: Chest Non Tender, Lungs Clear, Normal Breath Sounds, No Accessory Muscle Use, No Respiratory Distress Cardiovascular: Regular Rate, Rhythm, No Edema Gastrointestinal: Non Tender, Soft, Abnormal Bowel Sounds (quiet) Rectal: Deferred Extremity: Normal Inspection, Normal Range of Motion, Non Tender, No Calf Tenderness Neurologic/Psychiatric: Alert, Oriented x3 Skin: Warm/Dry Assessment/Plan Assessment/Plan Assessment and Plan 02/13/21- SBO- ivf, npo, NG tube with significant bile output. undergoing small bowel follow-through Continue to monitor for headaches. holding medications- half life of thyroid medication 7 days so we will be okay with holding it. -ordered lidocaine spray to see if it helps with the NG tube discomfort. will continue with case. Appreciate the consult. Dispo: expect her resolve with conservative management. Problems: (1) Nonintractable migraine Qualifiers: Qualified Codes: G43.109 - Migraine with aura, not intractable, without status migrainosus (2) Hypothyroidism (3) Small bowel obstruction KEAGAN HAMMONDS MD Feb 13, 2021 18:04
[2021-02-13] MEDS ORDERED: VISCOUS LIDOCAINE MC PRN ×2 (18:15)
[2021-02-13] MEDS ORDERED: CHLORASEPTIC MC PRN ×2 (18:15)
[2021-02-13] MEDS ORDERED: [UNRECOGNIZED DRUG - OTHER] PO PRN (18:15)
[2021-02-13] MEDS ORDERED: CHLORASEPTIC PO PRN (18:15)
[2021-02-13] MEDS ORDERED: DIATRIZOATE MEGLUM/SODIUM 37% 120 ML (GASTROGRAFIN) NG ONE (20:00)
[2021-02-13 20:15] VITALS: BP 105/66
--- NOTE | 2021-02-13 20:22 | Diagnostic Imaging Report ---
INDICATION: Abdominal pain, evaluate for possible obstruction. Small bowel study performed with contrast given through indwelling NG tube. There is a large hiatal hernia. Duodenal bulb and sweep appear unremarkable. Small bowel shows mild diffuse dilatation but no focal zone transition. Contrast reaches the right colon in 3 hours 50 minutes. IMPRESSION: Prominent hiatal hernia. Mild diffuse small bowel dilatation without obstruction. Contrast reaches the right colon in 3 hours and 50 minutes, compatible with ileus. Dictated by: Dictated on workstation # [id number]
[2021-02-14] VITALS: BP 121/60
[2021-02-14] MEDS: D5 1/2 NS W/KCL 20 MEQ/L 1,000 ML IV SCH ×4 (00:18→21:18)
[2021-02-14] MEDS: fentaNYL INJ 100 MCG/2 ML AMP IV PRN ×5 (01:20→19:19)
[2021-02-14 04:00] VITALS: BP 107/53
[2021-02-14 05:11] LABS: BASOPHILS % (AUTO) 0 % (0-10); EOSINOPHILS # (AUTO) 0.3 10^3/uL (0.0-0.3); EOSINOPHILS % (AUTO) 4 % (0-10); HEMATOCRIT 36 % (35-52); LYMPHOCYTES # (AUTO) 1.6 10^3/uL (1.0-4.0); LYMPHOCYTES % (AUTO) 20 % (12-44); MEAN CORPUSCULAR HEMOGLOBIN 30 pg (25-34); MEAN CORPUSCULAR HGB CONC 31 g/dL (32-36); MEAN CORPUSCULAR VOLUME 96 fL (80-99); MEAN PLATELET VOLUME 9.1 fL (9.0-12.2); MONOCYTES # (AUTO) 0.8 10^3/uL (0.0-1.0); MONOCYTES % (AUTO) 10 % (0-12); NEUTROPHILS # (AUTO) 5.4 10^3/uL (1.8-7.8); NEUTROPHILS % (AUTO) 66 % (42-75); PLATELET COUNT 378 10^3/uL (130-400); WHITE BLOOD COUNT 8.2 10^3/uL (4.3-11.0)
[2021-02-14 05:35] LABS: ALANINE AMINOTRANSFERASE 16 U/L (0-55); ALBUMIN 3.2 GM/DL (3.2-4.5); ALKALINE PHOSPHATASE 66 U/L (40-136); BILIRUBIN,TOTAL 0.5 MG/DL (0.1-1.0); BUN/CREATININE RATIO 10; CALCIUM 7.8 MG/DL (8.5-10.1); CARBON DIOXIDE 24 MMOL/L (21-32); CHLORIDE 108 MMOL/L (98-107); CREATININE SERUM 0.62 MG/DL (0.60-1.30); GFR ESTIMATED > 60; GLUCOSE 115 MG/DL (70-105); SODIUM 139 MMOL/L (135-145); TOTAL PROTEIN 5.8 GM/DL (6.4-8.2)
[2021-02-14] MEDS: PANTOPRAZOLE 40 MG (PROTONIX) VIAL IV SCH (07:52)
[2021-02-14 08:30] VITALS: BP 124/59
--- NOTE | 2021-02-14 09:05 | Progress Note ---
Subjective Subjective Date Seen by Provider: February 14, 2021 Time Seen by Provider: 09:30 Small bowel follow through- dye reached the right colon in 3 hr 40min. Patient is feeling better- glad to get the NG tube out. Review of Systems General: No Chills, No Night Sweats HEENT: No Head Aches Pulmonary: No Dyspnea, No Cough Cardiovascular: No: Chest Pain, Palpitations Gastrointestinal: Nausea; No: Vomiting, Abdominal Pain Genitourinary: No Dysuria Neurological: Weakness Objective Exam Vital Signs Vital Signs Date Time Temp Pulse Resp B/P (MAP) Pulse Ox O2 Delivery O2 Flow Rate FiO2 02/14/21 08:30 36.6 77 16 124/59 (80) 96 Room Air 02/14/21 07:00 84 02/14/21 04:00 36.7 71 18 107/53 (71) 93 Room Air 02/14/21 01:00 70 02/14/21 00:00 36.8 69 18 121/60 (80) 97 Room Air 02/13/21 20:15 37.5 75 17 105/66 (79) 97 Room Air 02/13/21 20:00 Room Air 02/13/21 19:00 67 02/13/21 16:00 37.3 88 18 124/72 (89) 97 Room Air 02/13/21 13:00 78 02/13/21 12:00 36.9 81 20 121/72 (88) 98 Room Air I & O 02/14/21 07:00 Intake Total 1000 ml Output Total 2900 ml Balance -1900 ml General Appearance: Mild Distress (nervous/scared) Eyes: Bilateral Eye PERRL, Bilateral Eye EOMI HEENT: Pharynx Normal, Moist Mucous Membranes; No Scleral Icterus (L), No Scleral Icterus (R); Other (NGT in place) Neck: Normal Inspection, Non Tender, Supple Respiratory: Chest Non Tender, Lungs Clear, Normal Breath Sounds, No Accessory Muscle Use, No Respiratory Distress Cardiovascular: Regular Rate, Rhythm, No Edema Gastrointestinal: Non Tender, Soft, Abnormal Bowel Sounds (more active bowel sounds.) Rectal: Deferred Back: No CVA Tenderness, No Vertebral Tenderness Extremity: Normal Inspection, Normal Range of Motion, Non Tender, No Calf Tenderness Neurologic/Psychiatric: Alert, Oriented x3 Skin: Warm/Dry Lymphatic: No Adenopathy (neck, axilla or groin) Results Lab Laboratory Tests 02/14/21 05:05: White Blood Count 8.2, Red Blood Count 3.72L, Hemoglobin 11.0L, Hematocrit 36, Mean Corpuscular Volume 96, Mean Corpuscular Hemoglobin 30, Mean Corpuscular Hemoglobin Concent 31L, Red Cell Distribution Width 14.2, Platelet Count 378, Mean Platelet Volume 9.1, Immature Granulocyte % (Auto) 0, Neutrophils (%) (Auto) 66, Lymphocytes (%) (Auto) 20, Monocytes (%) (Auto) 10, Eosinophils (%) (Auto) 4, Basophils (%) (Auto) 0, Neutrophils # (Auto) 5.4, Lymphocytes # (Auto) 1.6, Monocytes # (Auto) 0.8, Eosinophils # (Auto) 0.3, Basophils # (Auto) 0.0, Immature Granulocyte # (Auto) 0.0, Sodium Level 139, Potassium Level 4.0, Chloride Level 108H, Carbon Dioxide Level 24, Anion Gap 7, Blood Urea Nitrogen 6L, Creatinine 0.62, Estimat Glomerular Filtration Rate > 60, BUN/Creatinine Ratio 10, Glucose Level 115H, Calcium Level 7.8L, Corrected Calcium 8.4L, Total Bilirubin 0.5, Aspartate Amino Transf (AST/SGOT) 23, Alanine Aminotransferase (ALT/SGPT) 16, Alkaline Phosphatase 66, Total Protein 5.8L, Albumin 3.2 Assessment/Plan Assessment/Plan Assessment and Plan 02/13/21- SBO- ivf, npo, NG tube with significant bile output. undergoing small bowel follow-through Continue to monitor for headaches. holding medications- half life of thyroid medication 7 days so we will be okay with holding it. 02/14/21- NG tube removed. added chewing gum. Ambulate to improve bowels. Monitor today. Condition improving. Continue conservative management. Will add on thyroid medication when taking po. Problems: (1) Nonintractable migraine Qualifiers: Qualified Codes: G43.109 - Migraine with aura, not intractable, without status migrainosus (2) Hypothyroidism (3) Small bowel obstruction Assessment & Plan: improving small bowel followthrough worked- pt had a bowel movement. KEAGAN HAMMONDS MD February 14, 2021 09:05
--- NOTE | 2021-02-14 11:21 | Progress Note - Surgery ---
Subjective Date Seen by a Provider: February 14, 2021 Time Seen by a Provider: 09:25 Subjective/Events-last exam Patient with flatus and bm. Abdomen feeling better. Ng tube is bothering her. Denies n/v fever sweats chills shortness of breath or chest pain. Small bowel follow through showed contrast into the colon consistent with ileus. Objective Exam Vital Signs Date Time Temp Pulse Resp B/P (MAP) Pulse Ox O2 Delivery O2 Flow Rate FiO2 02/14/21 09:00 Room Air 02/14/21 08:30 36.6 77 16 124/59 (80) 96 Room Air 02/14/21 07:00 84 02/14/21 04:00 36.7 71 18 107/53 (71) 93 Room Air 02/14/21 01:00 70 02/14/21 00:00 36.8 69 18 121/60 (80) 97 Room Air 02/13/21 20:15 37.5 75 17 105/66 (79) 97 Room Air 02/13/21 20:00 Room Air 02/13/21 19:00 67 02/13/21 16:00 37.3 88 18 124/72 (89) 97 Room Air 02/13/21 13:00 78 02/13/21 12:00 36.9 81 20 121/72 (88) 98 Room Air I & O 02/14/21 07:00 Intake Total 1000 ml Output Total 2900 ml Balance -1900 ml Capillary Refill : Less Than 3 Seconds General Appearance: No Apparent Distress, WD/WN HEENT: PERRL/EOMI, Normal ENT Inspection; No Scleral Icterus (L), No Scleral Icterus (R); Other (NGT in place) Neck: Full Range of Motion, Normal Inspection, Non Tender, Supple Respiratory: Chest Non Tender, No Accessory Muscle Use, No Respiratory Distress Cardiovascular: Regular Rate, Rhythm, No Edema, No JVD Gastrointestinal: non tender, soft, no organomegaly, no pulsatile mass, ab normal bowel sounds; No distended, No guarding, No rebound, No hernia, No mass Extremity: Normal Inspection, Normal Range of Motion, Non Tender, No Calf Tenderness Neurologic/Psychiatric: Alert, Oriented x3 Skin: Warm/Dry Lymphatic: No Adenopathy (neck, axilla or groin) Results Lab Laboratory Tests 02/14/21 05:05: White Blood Count 8.2, Red Blood Count 3.72L, Hemoglobin 11.0L, Hematocrit 36, Mean Corpuscular Volume 96, Mean Corpuscular Hemoglobin 30, Mean Corpuscular Hemoglobin Concent 31L, Red Cell Distribution Width 14.2, Platelet Count 378, Mean Platelet Volume 9.1, Immature Granulocyte % (Auto) 0, Neutrophils (%) (Auto) 66, Lymphocytes (%) (Auto) 20, Monocytes (%) (Auto) 10, Eosinophils (%) (Auto) 4, Basophils (%) (Auto) 0, Neutrophils # (Auto) 5.4, Lymphocytes # (Auto) 1.6, Monocytes # (Auto) 0.8, Eosinophils # (Auto) 0.3, Basophils # (Auto) 0.0, Immature Granulocyte # (Auto) 0.0, Sodium Level 139, Potassium Level 4.0, Chloride Level 108H, Carbon Dioxide Level 24, Anion Gap 7, Blood Urea Nitrogen 6L, Creatinine 0.62, Estimat Glomerular Filtration Rate > 60, BUN/Creatinine Ratio 10, Glucose Level 115H, Calcium Level 7.8L, Corrected Calcium 8.4L, Total Bilirubin 0.5, Aspartate Amino Transf (AST/SGOT) 23, Alanine Aminotransferase (ALT/SGPT) 16, Alkaline Phosphatase 66, Total Protein 5.8L, Albumin 3.2 Assessment/Plan Assessment/Plan Assessment/Plan Partial Small Bowel Obstruction/Ileus Nausea and Vomiting Abd pain Hypothryoid Hiatal Hernia Patient small bowel follow through consistent with ileus. She has passed flatus and bm. Will pull NG tube and start on a little clears. Instructed to ambulate. If starts having nausea to back off on oral intake. SABRINA MARIN DO February 14, 2021 11:21
[2021-02-14 12:00] VITALS: BP 118/57
[2021-02-14 15:57] VITALS: BP 116/58
[2021-02-14] MEDS ORDERED: ACETAMINOPHEN 325 MG TABLET ONE (19:32)
[2021-02-14] MEDS: ACETAMINOPHEN 325 MG TABLET PO PRN (19:42)
[2021-02-14 19:43] VITALS: BP 110/67
[2021-02-15 00:08] VITALS: BP 113/69
[2021-02-15] MEDS: ONDANSETRON 4 MG/2 ML (SDV) Z0FRAN IV PRN ×4 (01:26→21:04)
[2021-02-15] MEDS: D5 1/2 NS W/KCL 20 MEQ/L 1,000 ML IV SCH ×4 (03:38→17:52)
[2021-02-15] MEDS: ACETAMINOPHEN 325 MG TABLET PO PRN (03:40)
[2021-02-15 04:55] VITALS: BP 100/58
[2021-02-15] MEDS: PANTOPRAZOLE 40 MG (PROTONIX) VIAL IV SCH (07:57)
[2021-02-15] MEDS: fentaNYL INJ 100 MCG/2 ML AMP IV PRN ×3 (08:01→19:06)
[2021-02-15 08:15] VITALS: BP 118/70
--- NOTE | 2021-02-15 08:56 | Diagnostic Imaging Report ---
Indication: Abdominal pain and vomiting. Comparison: 02/13/2021. Discussion: Single supine view of the abdomen was obtained. There is some gas noted within the stomach. The enteric tube is no longer visualized. There are dilated small bowel loops noted within the abdomen, with the colon mostly decompressed. Some contrast noted within diverticular disease along the sigmoid colon. Findings are concerning for small bowel obstruction. No pneumatosis or pneumoperitoneum on this supine exam. No osseous abnormality. Impression: 1. Suspect developing small bowel obstruction. Dictated by: Dictated on workstation # [id number]
[2021-02-15 10:03] LABS: HEMATOCRIT 37 % (35-52)
--- NOTE | 2021-02-15 10:15 | Progress Note ---
Subjective Subjective Date Seen by Provider: February 15, 2021 Time Seen by Provider: 09:05 Patient had multiple bowel movements last night and felt well; but overnight she feels she has low abdomen gas pains and feels nauseated. She vomited one time. Zofran last night helped. She is up walking to halls today. Review of Systems General: No Chills, No Night Sweats HEENT: No Head Aches Pulmonary: No Dyspnea, No Cough Cardiovascular: No: Chest Pain, Palpitations Gastrointestinal: Nausea; No: Vomiting, Abdominal Pain Genitourinary: No Dysuria Neurological: Weakness Objective Exam Vital Signs Vital Signs Date Time Temp Pulse Resp B/P (MAP) Pulse Ox O2 Delivery O2 Flow Rate FiO2 02/15/21 08:20 Room Air 02/15/21 08:15 37.5 86 16 118/70 (86) 97 Room Air 02/15/21 07:00 91 02/15/21 04:55 37.4 94 14 100/58 (72) 96 Room Air 02/15/21 04:42 37.2 02/15/21 04:37 37.2 02/15/21 01:41 77 02/15/21 00:08 37.0 70 16 113/69 (84) 96 Room Air 02/14/21 21:27 37.7 02/14/21 20:07 Room Air 02/14/21 19:43 37.6 90 16 110/67 (81) 97 Room Air 02/14/21 19:42 37.6 02/14/21 19:00 86 02/14/21 15:57 36.9 80 18 116/58 (77) 100 Room Air 02/14/21 13:00 71 02/14/21 12:00 36.7 77 16 118/57 (77) 98 Room Air I & O 02/15/21 06:59 Intake Total 1340 ml Output Total 2400 ml Balance -1060 ml General Appearance: WD/WN, Mild Distress Eyes: Bilateral Eye PERRL, Bilateral Eye EOMI HEENT: PERRL/EOMI, Normal ENT Inspection; No Scleral Icterus (L), No Scleral Icterus (R); Other (NGT in place) Neck: Full Range of Motion, Normal Inspection, Non Tender, Supple Respiratory: Chest Non Tender, No Accessory Muscle Use, No Respiratory Distress Cardiovascular: Regular Rate, Rhythm, No Edema, No JVD Gastrointestinal: Non Tender, Soft, Abnormal Bowel Sounds (quiet) Rectal: Deferred Back: No CVA Tenderness, No Vertebral Tenderness Extremity: Normal Inspection, Normal Range of Motion, Non Tender, No Calf Tenderness Neurologic/Psychiatric: Alert, Oriented x3 Skin: Warm/Dry Lymphatic: No Adenopathy (neck, axilla or groin) Results Lab Laboratory Tests 02/15/21 09:55: Assessment/Plan Assessment/Plan Assessment and Plan 02/13/21- SBO- ivf, npo, NG tube with significant bile output. undergoing small bowel follow-through Continue to monitor for headaches. holding medications- half life of thyroid medication 7 days so we will be okay with holding it. 02/14/21- NG tube removed. added chewing gum. Ambulate to improve bowels. Monitor today. Condition improving. Continue conservative management. Will add on thyroid medication when taking po. 02/15/21- continue walking. KUB done today- suggested of SBO starting. Clinical evaluations- right now she is doing well. No abdominal pain. Feeling better. Continue to monitor. Problems: (1) Nonintractable migraine Qualifiers: Qualified Codes: G43.109 - Migraine with aura, not intractable, without status migrainosus (2) Hypothyroidism (3) Small bowel obstruction Assessment & Plan: improving small bowel followthrough worked- pt had a bowel movement. KEAGAN HAMMONDS MD February 15, 2021 10:15
--- NOTE | 2021-02-15 10:19 | Progress Note - Surgery ---
Subjective Date Seen by a Provider: February 15, 2021 Time Seen by a Provider: 10:15 Subjective/Events-last exam Patient with some nausea and emesis late last night. This is resolved. Patient states that she has had 4 bowel movements overnight. She is passing flatus. Abdominal pain is crampy in nature and in the lower abdomen but currently improved. She states it is more like a gas pain that she is having. Patient is ambulating. Patient started on clears yesterday and feels that she would be okay with clears today. Currently denies any fever sweats chills shortness of breath or chest pain.KUB today showing some slightly dilated small bowel loops Objective Exam Vital Signs Date Time Temp Pulse Resp B/P (MAP) Pulse Ox O2 Delivery O2 Flow Rate FiO2 02/15/21 08:20 Room Air 02/15/21 08:15 37.5 86 16 118/70 (86) 97 Room Air 02/15/21 07:00 91 02/15/21 04:55 37.4 94 14 100/58 (72) 96 Room Air 02/15/21 04:42 37.2 02/15/21 04:37 37.2 02/15/21 01:41 77 02/15/21 00:08 37.0 70 16 113/69 (84) 96 Room Air 02/14/21 21:27 37.7 02/14/21 20:07 Room Air 02/14/21 19:43 37.6 90 16 110/67 (81) 97 Room Air 02/14/21 19:42 37.6 02/14/21 19:00 86 02/14/21 15:57 36.9 80 18 116/58 (77) 100 Room Air 02/14/21 13:00 71 02/14/21 12:00 36.7 77 16 118/57 (77) 98 Room Air I & O 02/15/21 07:00 Intake Total 1340 ml Output Total 2400 ml Balance -1060 ml Capillary Refill : Less Than 3 Seconds General Appearance: No Apparent Distress, WD/WN HEENT: PERRL/EOMI, Normal ENT Inspection; No Scleral Icterus (L), No Scleral Icterus (R); Other (NGT in place) Neck: Full Range of Motion, Normal Inspection, Non Tender, Supple Respiratory: Chest Non Tender, No Accessory Muscle Use, No Respiratory Distress Cardiovascular: Regular Rate, Rhythm, No JVD Gastrointestinal: non tender, soft, no organomegaly, no pulsatile mass; No distended, No guarding, No rebound, No hernia, No mass Extremity: Normal Inspection, Normal Range of Motion, Non Tender, No Calf Tenderness Neurologic/Psychiatric: Alert, Oriented x3 Skin: Warm/Dry Lymphatic: No Adenopathy (neck, axilla or groin) Results Lab Laboratory Tests 02/15/21 09:55: Assessment/Plan Assessment/Plan Assessment/Plan Partial Small Bowel Obstruction/Ileus Nausea and Vomiting Abd pain Hypothryoid Hiatal Hernia Patient small bowel follow through consistent with ileus. KUB today some dilated loops of small bowel. She has passed flatus and bm. Instructed to ambulate. If starts having nausea to back off on oral intake. Continue with conservative measures. SABRINA MARIN DO February 15, 2021 10:19
[2021-02-15 10:21] LABS: BASOPHILS % (AUTO) 0 % (0-10); EOSINOPHILS % (AUTO) 1 % (0-10); HEMOGLOBIN 11.2 g/dL (11.5-16.0); LYMPHOCYTES # (AUTO) 0.8 10^3/uL (1.0-4.0); LYMPHOCYTES % (AUTO) 9 % (12-44); MEAN CORPUSCULAR HEMOGLOBIN 29 pg (25-34); MEAN CORPUSCULAR HGB CONC 30 g/dL (32-36); MEAN CORPUSCULAR VOLUME 97 fL (80-99); MEAN PLATELET VOLUME 9.6 fL (9.0-12.2); MONOCYTES # (AUTO) 0.5 10^3/uL (0.0-1.0); MONOCYTES % (AUTO) 6 % (0-12); NEUTROPHILS % (AUTO) 84 % (42-75); PLATELET COUNT 204 10^3/uL (130-400); WHITE BLOOD COUNT 8.4 10^3/uL (4.3-11.0)
[2021-02-15 10:22] LABS: SMEAR SCAN COMMENT YES
[2021-02-15 10:26] LABS: ALBUMIN 3.7 GM/DL (3.2-4.5); CHLORIDE 108 MMOL/L (98-107); POTASSIUM 4.1 MMOL/L (3.6-5.0); SODIUM 142 MMOL/L (135-145)
[2021-02-15 10:27] LABS: CALCIUM 8.7 MG/DL (8.5-10.1)
[2021-02-15 10:28] LABS: GLUCOSE 129 MG/DL (70-105)
[2021-02-15 10:30] LABS: CARBON DIOXIDE 23 MMOL/L (21-32)
[2021-02-15 10:32] LABS: CREATININE SERUM 0.66 MG/DL (0.60-1.30); GFR ESTIMATED > 60
[2021-02-15 10:33] LABS: BUN/CREATININE RATIO 5
[2021-02-15 11:21] VITALS: BP 117/69
[2021-02-15 15:11] VITALS: BP 119/71
[2021-02-15 20:04] VITALS: BP 110/66
[2021-02-16 00:11] VITALS: BP 111/57
[2021-02-16] MEDS: D5 1/2 NS W/KCL 20 MEQ/L 1,000 ML IV SCH ×2 (01:20→06:09)
[2021-02-16 07:30] VITALS: BP 115/71
[2021-02-16] MEDS: PANTOPRAZOLE 40 MG (PROTONIX) VIAL IV SCH (08:24)
--- NOTE | 2021-02-16 14:00 | Progress Note - Surgery ---
Subjective Time Seen by a Provider: 13:20 Subjective/Events-last exam Pt seen and examined, states she feels 100% better. She is sitting up in chair smiling and dressed ready to go. Review of Systems Pulmonary: No Dyspnea, No Cough Cardiovascular: No: Chest Pain, Palpitations Gastrointestinal: No: Nausea, Vomiting, Abdominal Pain Objective Exam Vital Signs Date Time Temp Pulse Resp B/P (MAP) Pulse Ox O2 Delivery O2 Flow Rate FiO2 02/16/21 13:40 70 02/16/21 08:00 Room Air 02/16/21 07:30 36.6 73 16 115/71 (86) 99 Room Air 02/16/21 07:00 74 02/16/21 01:00 67 02/16/21 00:11 36.5 80 16 111/57 (75) 96 Room Air 02/15/21 20:10 Room Air 02/15/21 20:04 36.9 74 16 110/66 (81) 97 Room Air 02/15/21 19:00 85 02/15/21 15:11 37.0 77 18 119/71 (87) 96 Room Air I & O 02/16/21 07:00 Intake Total 3140 ml Output Total 2500 ml Balance 640 ml Capillary Refill : Less Than 3 Seconds General Appearance: No Apparent Distress, WD/WN HEENT: No Scleral Icterus (L), No Scleral Icterus (R); Other (NGT in place) Respiratory: Chest Non Tender, No Accessory Muscle Use, No Respiratory Distress Cardiovascular: Regular Rate, Rhythm, No JVD Gastrointestinal: non tender, soft, no organomegaly, no pulsatile mass; No distended, No guarding, No rebound Extremity: No Calf Tenderness Neurologic/Psychiatric: Alert, Oriented x3 Skin: Warm/Dry Assessment/Plan Assessment/Plan Assessment/Plan Partial Small Bowel Obstruction/Ileus - resolved now Nausea and Vomiting -resolved Abd pain - resolved Hypothryoid Hiatal Hernia Pt ok to go home, increase diet slowly and f/u in a week; at that time will schedule EGD and Colonoscopy. She had no questions. SARAH HOWARD DO February 16, 2021 14:00
--- NOTE | 2021-02-16 14:02 | Discharge Inst-Surgical ---
Discharge Inst-Surgical Depart Medication/Instructions New, Converted or Re-Newed RX: Other (no Rx needed) Patient Instructions Follow up Appt: Make appointment for 1 week. [phone] Instructions: Lots of walking and chew gum, both help with bowel fuction. Symptoms to Report: Appetite Changes, Extremity Discoloration, Numbness/Tingling, Swelling Increased, Bleeding Excessive, Eyesight Changes, Pain Increased, Urine Color Change, Constipation(Persistent), Fever over 101 degree F, Pain/Pressure in chest, Urinating Difficulty, Cough Up/Vomit Blood, Heart Beat Irreg/Pounding, Pain/Pressure in jaw, Cramps in feet or legs, Lightheadedness, Pain/Pressure in shoulder, Diarrhea(Persistent), Memory Changes Suddenly, Questions/Concerns, Weight gain consecutive days, Dizziness/Fainting, Nausea/Vomiting, Shortness of Breath, Weight gain over 2 pounds If questions or concerns contact your physician Or seek help at emergency department. Activity Activity as Tolerated: Yes Driving Instructions: You May Drive Diet Discharge Diet: No Restrictions (start liquid and increase to soft and then regular) Skin/Wound Care Bathing Instructions: SARAH Spangler DO February 16, 2021 14:02
== END 2021-02-16 14:40 | disposition home or self-care (01) | DRG 390 ==
LOC: EDUNIT# 22:38 → ER 22:40 → 4TH 02-13 01:00
PROVIDERS: ADMIT Surgery; ATTEND Surgery
DX: K56.7 Ileus, unspecified (principal); G43.909 Migraine, unspecified, not intractable, without status migrainosus; E03.9 Hypothyroidism, unspecified; K44.9 Diaphragmatic hernia without obstruction or gangrene; Z88.6 Allergy status to analgesic agent; Z88.1 Allergy status to other antibiotic agents
CPT/HCPCS: 36415; 71045; 74018; 74022; 74177; 74250; 80053; 80069; 81000; 82150; 83690; 83735; 85007; 85025; 85027; 93041

== ENCOUNTER 2022-01-16 08:57 | Emergency (ER) | payer MEDICARE, OTHER ==
[~2022-01-16] VITALS: Ht 157 cm; Wt 61.6 kg
[~2022-01-16 08:57] MED LIST changes: +ACET-2267 PO; +CALC-921 PO; +ESTR1PAT TD; +FISH1CAP15 PO; +MAG355OR17 PO; +POTA99TA17 PO; +PROG50VI5 IM; +THYR15TA PO
[2022-01-16] MEDS ORDERED: PROMETHAZINE INJ 25 MG/ML (PHENERGAN) AMP IVP STA (09:29)
[2022-01-16] MEDS ORDERED: KETOROLAC 30 MG/ML VIAL IVP ONE (09:30)
[2022-01-16] MEDS ORDERED: diphenhydrAMINE 50 MG/ML INJ (BENADRYL) IVP ONE (09:30)
[2022-01-16] MEDS ORDERED: LACTATED RINGERS 1,000 ML IV ONE (09:30)
[2022-01-16 10:08] LABS: POTASSIUM 3.7 MMOL/L (3.6-5.0)
[2022-01-16 10:09] LABS: CALCIUM 9.5 MG/DL (8.5-10.1)
[2022-01-16 10:14] LABS: CREATININE SERUM 0.66 MG/DL (0.60-1.30)
[2022-01-16 10:16] LABS: MAGNESIUM 1.7 MG/DL (1.6-2.4)
[2022-01-16 10:38] LABS: FREE T4 (FREE THYROXINE) 0.91 NG/DL (0.70-1.48)
[2022-01-16] MEDS ORDERED: ONDA4TAB11 SL (10:54)
--- NOTE | 2022-01-16 10:55 | ED Headache ---
General Chief Complaint: Head/Cervical Problems Stated Complaint: MIGRAINE Nursing Triage Note: PT PRESENTS TO ED WITH COMPLAINTS OF A MIGRAINE THAT STARTED AT 0400 THIS AM. Source: patient Exam Limitations: no limitations History of Present Illness Date Seen by Provider: Jan 16, 2022 Time Seen by Provider: 09:20 Initial Comments This 71-year-old lady presents to the emergency room with onset of typical migraine symptoms starting at 0400. Symptoms woke her up at that time. She has not taken any medications for the headache at this morning. Her typical symptoms are headache over the right eye and nausea. She has been seen in this ER previously for the same type of presentation and treated with parenteral medications. She would like the same treatment again today. She has thyroid dysfunction and it has been a while since her thyroid labs were checked. Allergies and Home Medications Allergies Coded Allergies: codeine (Verified Allergy, Unknown, 11/02/18) erythromycin base (Verified Allergy, Unknown, 11/02/18) Patient Home Medication List Home Medication List Reviewed: Yes Acetaminophen (Tylenol Extra Strength) 500 Mg Tablet, 500-1,000 MG PO Q8H PRN for PAIN-MILD (1-4), (Reported) Entered as Reported by: ALEKSANDAR CEE on 02/13/21 1051 Calcium Carb/Magnesium Hydrox (Rolaids Chewable Tablet) 1 Each Tab.chew, 1-2 EACH PO UD PRN for HEARTBURN, (Reported) Entered as Reported by: ALEKSANDAR CEE on 02/13/21 105 Estradiol (Vivelle-Dot Patch Twice Weekly 0.0375mg/hr) 1 Each Patch.tdsw, 1 PATCH TD TWICE WEEKLY, (Reported) Entered as Reported by: ALEKSANDAR CEE on 02/13/21 1051 Fish Oil/Dha/Epa (Fish Oil 1,200 mg Fish Oil) 1 Each Capsule, 1 EACH PO DAILY, (Reported) Entered as Reported by: ALEKSANDAR CEE on 02/13/21 1051 Mag Hydrox/Al Hydrox/Simeth (Maalox Maximum Strength Susp) 355 Ml Oral.susp, 10- 20 ML PO QID PRN for INDIGESTION, (Reported) Entered as Reported by: ALEKSANDAR CEE on 02/13/21 1051 Ondansetron (Ondansetron Odt) 4 Mg Tab.rapdis, 4 MG SL Q4H PRN for NAUSEA/VOMITING Prescribed by: CRISTIAN COLLINS on 01/16/22 1054 Potassium Gluconate (Potassium Gluconate 595 MG) 99 Mg Tablet, 99 MG PO DAILY, (Reported) Entered as Reported by: ALEKSANDAR CEE on 02/13/21 1051 Progesterone (Progesterone) 50 Mg/1 Ml Vial, 3 ML IM MONTHLY, (Reported) Entered as Reported by: ALEKSANDAR CEE on 02/13/21 1051 Thyroid,Pork ([place] Thyroid) 15 Mg Tablet, 15 MG PO DAILY, (Reported) Entered as Reported by: ALEKSANDAR CEE on 02/13/21 1051 Review of Systems Review of Systems Constitutional: no symptoms reported Eyes: See HPI Ears, Nose, Mouth, Throat: no symptoms reported Respiratory: no symptoms reported Cardiovascular: no symptoms reported Gastrointestinal: see HPI Genitourinary: no symptoms reported Musculoskeletal: no symptoms reported Skin: no symptoms reported Psychiatric/Neurological: See HPI Past [id number] Hx Patient Social History Tobacco Use?: No Substance use?: No Alcohol Use?: Yes Alcohol type: Wine Alcohol Frequency: Once in a while Pt feels they are or have been: No Immunizations Up To Date Tetanus Booster (TDap): Unknown First/Initial COVID19 Vaccinat: YES Second COVID19 Vaccination Jose Guadalupe: YES 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: [employer] Seasonal Allergies Seasonal Allergies: No Past Medical History Surgery/Hospitalization HX: ABDOMINAL SX Surgeries: Yes (LITHOTRIPSY) Renal Respiratory: No Cardiac: No Neurological: Yes Headaches /Migraines [employer]ER History: Menopausal Genitourinary: Yes Kidney Stones Gastrointestinal: No Musculoskeletal: No Endocrine: Yes Hypothyroidsim HEENT: No Cancer: No Psychosocial: No Integumentary: No Blood Disorders: No Adverse Reaction/Blood Tranf: No Family Medical History Hypertension, Vascular Disease, Other Conditions/Hx Physical Exam Vital Signs Vital Signs - First Documented 01/16/22 09:11 Temp 36.4 Pulse 86 Resp 18 B/P (MAP) 126/87 (100) Pulse Ox 96 Capillary Refill : Less Than 3 Seconds Height, Weight, BMI Height: 5'2.00" Weight: 126lbs. oz. [id number]; 24.00 BMI Method:Stated General Appearance: WD/WN, mild distress HEENT: PERRL/EOMI, normal ENT inspection Neck: normal inspection Cardiovascular: regular rate, rhythm, no edema, no murmur Respiratory: lungs clear, normal breath sounds, no respiratory distress Gastrointestinal: non tender, soft Extremities: normal inspection Psychiatric: alert, oriented x 3 [place] Nerves: normal hearing, normal speech, PERRL Motor/Sensory: no motor deficit Skin: normal color, warm/dry Progress/Results/Core Measures Results/Orders Lab Results Laboratory Tests Test 01/16/22 09:50 Range/Units Sodium Level 141 135-145 MMOL/L Potassium Level 3.7 3.6-5.0 MMOL/L Chloride Level 103 98-107 MMOL/L Carbon Dioxide Level 22 21-32 MMOL/L Anion Gap 16 H 5-14 MMOL/L Blood Urea Nitrogen 12 7-18 MG/DL Creatinine 0.66 0.60-1.30 MG/DL Estimat Glomerular Filtration Rate 93 BUN/Creatinine Ratio 18 Glucose Level 107 H 70-105 MG/DL Calcium Level 9.5 8.5-10.1 MG/DL Magnesium Level 1.7 1.6-2.4 MG/DL Thyroid Stimulating Hormone (TSH) 1.44 0.35-4.94 UIU/ML Free Thyroxine 0.91 0.70-1.48 NG/DL My Orders Orders - CRISTIAN COLLINS MD Basic Metabolic Panel (01/16/22 09:29) Magnesium (01/16/22 09:29) Thyroid Stimulating Hormone (01/16/22 09:29) Ed Iv/Invasive Line Start (01/16/22 09:29) Lactated Ringers (Lr 1000 Ml Iv Solution (01/16/22 09:30) Promethazine Injection (Phenergan Injec (01/16/22 09:29) Diphenhydramine Injection (Benadryl Inje (01/16/22 09:30) Free T4 (Free Thyroxine) (01/16/22 09:29) Ketorolac Injection (Toradol Injection) (01/16/22 09:30) Medications Given in ED Vital Signs/I&O 01/16/22 01/16/22 09:11 11:08 Temp 36.4 Pulse 86 95 Resp 18 18 B/P (MAP) 126/87 (100) 128/72 Pulse Ox 96 98 Blood Pressure Mean: 100 Progress Progress Note : Progress Note Labs were unremarkable. Patient was treated with LR x1 L, promethazine, Toradol, and Benadryl. She achieved good results with minimal residual headache. She was discharged home in improved condition. Departure Impression Primary Impression: Migraine headache Qualified Codes: G43.009 - Migraine without aura, not intractable, without status migrainosus Additional Impressions: Hypothyroidism Qualified Codes: E03.9 - Hypothyroidism, unspecified Nausea Disposition: 01 HOME, SELF-CARE Condition: Improved Departure-Patient Inst. Decision time for Depature: 10:52 Referrals: KEAGAN HAMMONDS MD (PCP/Family) Primary Care Physician Patient Instructions: Migraines in Adults Add. Discharge Instructions: Try to rest in a quiet, calm environment for the remainder of the day. You may take ibuprofen up to 600 mg every 6 hours and/or Tylenol (acetaminophen) up to 1000 mg every 6 hours as needed for further headache. Drink plenty of clear liquids to stay well-hydrated. You may use Zofran (ondansetron) as prescribed for nausea and vomiting. Please follow-up with your primary care provider to discuss further treatment and prevention options for migraine. Call with questions or concerns. Return to the ER if you have worsening symptoms despite following these instructions. All discharge instructions reviewed with patient and/or family. Voiced understanding. Scripts Ondansetron (Ondansetron Odt) 4 Mg Tab.rapdis 4 MG SL Q4H PRN for NAUSEA/VOMITING, #10 TAB Prov: CRISTIAN COLLINS MD 01/16/22 Copy Copies To 1: KEAGAN HAMMONDS MD, JOSHUA T MD Jan 16, 2022 10:55
[2022-01-16 11:08] VITALS: BP 128/72
== END 2022-01-16 11:14 | disposition home or self-care (01) ==
LOC: EDUNIT# 08:57 → ER 08:59
DX: G43.909 Migraine, unspecified, not intractable, without status migrainosus (principal); E03.9 Hypothyroidism, unspecified
CPT/HCPCS: 36415; 80048; 83735; 84439; 84443